=== PATIENT | female | born 1945 | race Caucasian/White ===

== ENCOUNTER 2021-08-19 11:52 | Emergency (ER) | payer MEDICARE, SELFPAY ==
[2021-08-19 11:54] VITALS: BP 171/104; PULSE 85; RESP 22; TEMP 37.2; BMI 27.5
--- NOTE | 2021-08-19 12:10 | EKG12_ITS ---
Test Reason : CP Blood Pressure : / mmHG Vent. Rate : 082 BPM Atrial Rate : 082 BPM P-R Int : 172 ms QRS Dur : 100 ms QT Int : 376 ms P-R-T Axes : 003 -34 028 degrees QTc Int : 439 ms Sinus rhythm with Premature atrial complexes Left axis deviation Abnormal ECG Confirmed by FIDEL TORRES, JOSE ([id number]), continuity editor ABIMAEL SHELBY ([id number]) on 08/22/2021 11:26:54 AM Referred By: BERRY Confirmed By:JOSE PARRA MD
--- NOTE | 2021-08-19 12:10 | RAD_ITS ---
STUDY: X-RAY CHEST REASON FOR EXAM: Female, 76 years old. Right-sided chest pain. TECHNIQUE: Single AP portable view of the chest. COMPARISON: None. FINDINGS: EKG electrodes are seen. Large soft tissue density seen overlying the medial aspect of the left lung. This may represent either a markedly dilated descending thoracic aorta versus possible left mediastinal/hilar mass. Correlation with a CT scan is recommended. Mild increased markings at the left lung base suggestive of atelectasis and/or infiltrate. Elevation of the left hemidiaphragm. Normal visualized thoracic spine. Normal visualized ribs, clavicles, and shoulders. There is no demonstrated abnormality of the visualized soft tissue structures of the upper abdomen. RAD/Chest PA and Lateral IMPRESSION: Large soft tissue density overlying the medial aspect of the left lung suggestive of either markedly dilated aorta versus possible hilar/mediastinal mass. Findings suggestive of atelectasis and/or early infiltrate at the left lung base. Elevation of the left hemidiaphragm. Correlation with a CT scan of the thorax is recommended. Electronically Signed: Darius Servin MD at 12:58 EDT ,
--- NOTE | 2021-08-19 12:10 | ED.VIS.CHEST ---
HPI <ALEXANDRE Nunes - Last Filed: 08/19/21 13:52> History of Present Illness Chief Complaint: Chest Pain Narrative Narrative: 76-year-old female with PMH of hypertension, hyperlipidemia presents with chest pain that started last night around 8 PM while she was sitting in a recliner. This started 2 hours after having beef stew for dinner. Pain was midsternal pressure but also in her right ribs/side. It waxed and waned with no real pattern and this morning she mainly has pain in her right side. Pain is 4/10. It is not exertional or pleuritic. She has no associated shortness of breath. She has been nauseous with dry heaving but no vomiting and no diaphoresis. She denies cardiopulmonary history and has never had a stress test. No history of DVT/PE. No leg pain or swelling, recent surgery or travel, cough or hemoptysis. Patient was found to be hypertensive here and states she took her atenolol 50 mg and lisinopril 10 mg around 8 AM this morning. Prior Similar Symptoms: No PFSH <ALEXANDRE Nunes - Last Filed: 08/19/21 13:52> PFSH Medical History (Updated 08/19/21 @ 14:[address] Lucas Costello MD) High cholesterol Hypertension Home Medications atenolol 50 mg PO DAILY 08/19/21 [History Last Taken Unknown] atorvastatin 10 mg PO DAILY 08/19/21 [History Last Taken Unknown] lisinopril 10 mg PO DAILY 08/19/21 [History Last Taken Unknown] Allergy/AdvReac Type Severity Reaction Status Date / Time Penicillins [PCN] Allergy PT UNSURE Verified 08/19/21 12:22 OF REACTION Surgical History (Updated 08/19/21 @ 12:09 by Kulwant Calles) Hx of appendectomy Hx of tonsillectomy Social History Smoking Status: Former smoker ROS <ALEXANDRE Nunes - Last Filed: 08/19/21 13:52> ROS ED ROS Narrative Constitutional: Negative for fever, chills, malaise. Eyes: Negative for visual change. ENT: Negative for sore throat, ear pain, rhinorrhea. CVS: Positive for chest pain. Negative for palpitations, syncope. Respiratory: Negative for shortness of breath, cough, orthopnea. GI: Positive for nausea. Negative for abdominal pain, vomiting, diarrhea, constipation, melena, hematochezia. : Negative for dysuria, hematuria or frequency. Neuro: Negative for headache, motor/sensory dysfunction. Skin: Negative for rash, abscess, or wound. Musc: Negative for joint pain, swelling, trauma. Heme: Negative for easy bruising, bleeding, lymphadenopathy. EXAM <ALEXANDRE Nunes - Last Filed: 08/19/21 13:52> Physical Exam Narrative Exam Narrative: CONST: Patient sitting in no acute distress. EYES: Normal inspection. ENT: Normal inspection, moist mucous membranes. NECK: Normal inspection. RESP: No respiratory distress, CTAB. CVS: Regular rate and rhythm, no murmur, no gallop. Occasional PVC. ABD: Soft and nontender, no guarding or rebound, nondistended, no hepatosplenomegaly. Back: Normal inspection. SKIN: Color normal, no rash, warm, dry, intact. EXTREMITIES: Normal appearance, no pedal edema. NEURO: Oriented x4. PSYCH: Normal affect. Const Vital Signs: 08/19/21 11:54 08/19/21 12:01 08/19/21 13:55 Temperature 98.9 F Temperature Source Oral Pulse Rate 85 94 Respiratory Rate 22 H 18 Respiratory Effort Normal Blood Pressure 171/104 H 167/93 H Blood Pressure Mean 126 117 Blood Pressure Source Pulse Ox 97 Oxygen Delivery Method Room Air Room Air 08/19/21 14:24 08/19/21 14:27 Temperature Temperature Source Pulse Rate 103 H 94 Respiratory Rate 18 16 Respiratory Effort Blood Pressure 179/72 H 169/89 H Blood Pressure Mean 107 115 Blood Pressure Source Monitor Pulse Ox 94 95 Oxygen Delivery Method Room Air <Dr. Lucas Costello MD - Last Filed: 08/19/21 23:00> Physical Exam Const Vital Signs: 08/19/21 11:54 08/19/21 12:01 08/19/21 13:55 Temperature 98.9 F Temperature Source Oral Pulse Rate 85 94 Respiratory Rate 22 H 18 Respiratory Effort Normal Blood Pressure 171/104 H 167/93 H Blood Pressure Mean 126 117 Blood Pressure Source Pulse Ox 97 Oxygen Delivery Method Room Air Room Air 08/19/21 14:24 08/19/21 14:27 Temperature Temperature Source Pulse Rate 103 H 94 Respiratory Rate 18 16 Respiratory Effort Blood Pressure 179/72 H 169/89 H Blood Pressure Mean 107 115 Blood Pressure Source Monitor Pulse Ox 94 95 Oxygen Delivery Method Room Air <ALEXANDRE Nunes - Last Filed: 08/19/21 13:52> Heart Score History: Slightly/Non-Suspicious ECG: Normal Age: >/= 65 years Risk Factors: >/= 3 Risk Factors or History of CAD Troponin: </= Normal Limit Score: 4 MDM <ALEXANDRE Nunes - Last Filed: 08/19/21 13:52> MDM MDM Narrative Medical decision making narrative: Patient presents with chest pain that started at 8 PM last night. She appears well nontoxic. BP 171/104, otherwise normal. Medical exam is unremarkable with normal heart and lung sounds. Soft, nontender abdomen. Cardiac work-up is negative with nonischemic EKG and troponin of 6. She does have a leukocytosis of 13 but the rest of her lab work is unremarkable with normal CMP and lipase. CXR showed a widening of the mediastinum/mass so a CT of the chest abdomen pelvis was obtained. 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 She was treated with labetalol and morphine and has remained stable. Attending discussed the case with [facility] and she will be life flighted as soon as possible. Diagnoses 1. Chest pain 2. Hypertension 3. Aortic dissection ED attending interpretation of 2 view chest shows large density overlying the heart/left lung possible dilated aorta versus hiatal hernia. Lab Data Labs: Laboratory Results - last 24 hr 08/19/21 08/19/21 08/19/21 11:55 11:55 11:55 WBC 13.8 H RBC 3.93 L Hgb 11.9 L Hct 34.8 L MCV 88.5 MCH 30.3 MCHC 34.2 RDW Std Deviation 39.9 RDW Coeff of Rock 12.3 Plt Count 228 MPV 9.6 Immature Gran % (Auto) 1.200 H Neut % (Auto) 90.0 H Lymph % (Auto) 3.9 L Wilcox % (Auto) 4.7 Eos % (Auto) 0.0 Baso % (Auto) 0.2 Absolute Neuts (auto) 12.4 H Absolute Lymphs (auto) 0.54 L Nucleated RBC % 0 Sodium 136 Potassium 3.6 Chloride 103 Carbon Dioxide 26.0 Anion Gap 7 BUN 18 Creatinine 0.92 Estim Creat Clear Calc 41.14 Est GFR (MDRD) Af Amer 77 Est GFR (MDRD) Non-Af 63 BUN/Creatinine Ratio 19.6 Glucose 141 H Calcium 9.0 Total Bilirubin 0.50 AST 15 ALT 22 Alkaline Phosphatase 65 Troponin I High Sens 6 Total Protein 7.6 Albumin 3.8 Globulin 3.8 Albumin/Globulin Ratio 1.0 Lipase 123 Radiography Diagnostic Testing: Clinical Impression(s) from Imaging Studies Chest X-Ray 08/19/21 12:10 IMPRESSION: Large soft tissue density overlying the medial aspect of the left lung suggestive of either markedly dilated aorta versus possible hilar/mediastinal mass. Findings suggestive of atelectasis and/or early infiltrate at the left lung base. Elevation of the left hemidiaphragm. Correlation with a CT scan of the thorax is recommended. Electronically Signed: Darius Servin MD at 12:58 EDT , Chest/Abdomen/Pelvis CT 08/19/21 13:08 IMPRESSION: There is evidence of a type B aortic dissection originating at the level of the proximal descending thoracic aorta down to the diaphragmatic hiatus with evidence of periaortic hematoma. Small left pleural effusion with left basilar atelectasis. N.B. : The above Results were Read Back by Darius Servin MD to PATRICIA BROWN and understanding confirmed on 08/19/2021 13:50:38 (ET). Electronically Signed: Darius Servin MD at 13:51 EDT , ADDENDUM: 08/19/21 1358 IMPRESSION: There is evidence of a type B aortic dissection originating at the level of the proximal descending thoracic aorta down to the diaphragmatic hiatus with evidence of periaortic hematoma. Small left pleural effusion with left basilar atelectasis. N.B. : The above Results were Read Back by Darius Servin MD to PATRICIA BROWN and understanding confirmed on 08/19/2021 13:50:38 (ET). Electronically Signed: Darius Servin MD at 13:51 EDT , EKG Initial EKG: Attestation: I personally reviewed and interpreted this EKG as follows: Interpretation: Sinus Rhythm (Sinus rhythm with PACs, left axis deviation, no acute ST-T wave changes, 82 bpm) <Dr. Lucas Costello MD - Last Filed: 08/19/21 23:00> [facility] MDM Narrative Medical decision making narrative: I saw the patient after some of her blood work were done. When I went to see her she states the pain did increase. She states she did have some pain in the lower chest but most was in the upper abdomen and more on the right side than the left clearly. She did not have pain in the back., She looked uncomfortable. She states this started about 8 PM last night. She thought it was the food she ate even though her did not have symptoms. She states it has been cramping and waxing and waning ever since but has never gone away. She is not short of breath. She has not been syncopal or lightheaded. She does have a history of high blood pressure. She evidently is taking her medications. Yet her blood pressure is a bit up here. With her symptoms, worsening, chest x-ray findings of abnormal aortic arch and possible hiatal hernia, we did do CT with contrast of both chest and abdomen. The x-ray tech called me when this was done and stated there appeared to be abnormality. I looked at these images and this looks like a Jovan type B dissection. When this was noted we placed an order for labetalol. We do not have an order set for Brevibloc in the computer. We made immediately calls to [facility]. I have discussed the case twice through the call center. Blood pressure responded a bit but then is getting back up. We were giving labetalol at 40. We done this through a verbal order. I now have the written order in. However, we only have another 20 mg of labetalol in the department. So we are giving that. We have also called the pharmacy to have them mix up a Brevibloc drip as we do not have a preset order for that. Helicopter should be here in a matter of minutes. I explained the process disease flight reason for transfer with patient and . I also explained that this is a highly dangerous disease. She needs to be in an area that has the capability to manage this including the possibility of surgery even though these can sometimes be managed medically. Patient does not have signs of distal ischemia. Due to repeat visits with the patient and her , discussing with consultants, pharmacy, other staff, critical care time of 50 minutes was needed. Lab Data Attestation: I reviewed the patient's lab results. Labs: Laboratory Results - last 24 hr 08/19/21 08/19/21 08/19/21 11:55 11:55 11:55 WBC 13.8 H RBC 3.93 L Hgb 11.9 L Hct 34.8 L MCV 88.5 MCH 30.3 MCHC 34.2 RDW Std Deviation 39.9 RDW Coeff of Rock 12.3 Plt Count 228 MPV 9.6 Immature Gran % (Auto) 1.200 H Neut % (Auto) 90.0 H Lymph % (Auto) 3.9 L Wilcox % (Auto) 4.7 Eos % (Auto) 0.0 Baso % (Auto) 0.2 Absolute Neuts (auto) 12.4 H Absolute Lymphs (auto) 0.54 L Nucleated RBC % 0 Sodium 136 Potassium 3.6 Chloride 103 Carbon Dioxide 26.0 Anion Gap 7 BUN 18 Creatinine 0.92 Estim Creat Clear Calc 41.14 Est GFR (MDRD) Af Amer 77 Est GFR (MDRD) Non-Af 63 BUN/Creatinine Ratio 19.6 Glucose 141 H Calcium 9.0 Total Bilirubin 0.50 AST 15 ALT 22 Alkaline Phosphatase 65 Troponin I High Sens 6 Total Protein 7.6 Albumin 3.8 Globulin 3.8 Albumin/Globulin Ratio 1.0 Lipase 123 Radiography Diagnostic Testing: Clinical Impression(s) from Imaging Studies Chest X-Ray 08/19/21 12:10 IMPRESSION: Large soft tissue density overlying the medial aspect of the left lung suggestive of either markedly dilated aorta versus possible hilar/mediastinal mass. Findings suggestive of atelectasis and/or early infiltrate at the left lung base. Elevation of the left hemidiaphragm. Correlation with a CT scan of the thorax is recommended. Electronically Signed: Darius Servin MD at 12:58 EDT , Chest/Abdomen/Pelvis CT 08/19/21 13:08 IMPRESSION: There is evidence of a type B aortic dissection originating at the level of the proximal descending thoracic aorta down to the diaphragmatic hiatus with evidence of periaortic hematoma. Small left pleural effusion with left basilar atelectasis. N.B. : The above Results were Read Back by Darius Servin MD to PATRICIA BROWN and understanding confirmed on 08/19/2021 13:50:38 (ET). Electronically Signed: Darius Servin MD at 13:51 EDT , ADDENDUM: 08/19/21 1358 IMPRESSION: There is evidence of a type B aortic dissection originating at the level of the proximal descending thoracic aorta down to the diaphragmatic hiatus with evidence of periaortic hematoma. Small left pleural effusion with left basilar atelectasis. N.B. : The above Results were Read Back by Darius Servin MD to PATRICIA BROWN and understanding confirmed on 08/19/2021 13:50:38 (ET). Electronically Signed: Darius Servin MD at 13:51 EDT , <Dr. Lucas Costello MD - Last Filed: 08/19/21 23:00> Critical Care Time Critical care time (excluding procedures): 30-74 minutes, Discussing w/Patient &/or Family/Employment Trainer, Discussing w/Consultants, Arranging Admission or Transfer, Performing Direct Patient Care at Bedside and - (50 minutes. See MDM) Discharge Plan Triage Chief Complaint: Chest Pain ED Provider: Patricia Brwon Dx/Rx/DC Orders Clinical Impression: Aortic dissection, Hypertensive emergency Prescriptions: No Action atorvastatin 10 mg tablet 10 mg PO DAILY RF: 0 lisinopril 10 mg tablet 10 mg PO DAILY RF: 0 atenolol 50 mg tablet 50 mg PO DAILY RF: 0 Primary Care Provider: Amadou Sanderson Referrals: Amadou Sanderson MD [Primary Care Provider] - Disposition Disposition: Acute Care Hospital Discharge Location: [facility] Discharge Date/Time: 08/19/21 14:37
[2021-08-19 12:20] LABS: Absolute Lymphocyte Count 0.54 X10^3/uL (0.83-4.51); Absolute Neutrophil Count 12.4 X10^3/uL (2.0-7.7); Basophil# 0.03 X10^3/uL; Basophil% 0.2 % (0-1); Hematocrit 34.8 % (37-47); Hemoglobin 11.9 g/dL (12.0-15.0); Lymphocyte # 0.54 X10^3/ul (0.83-4.51); Lymphocyte % 3.9 % (19-41); Mean Corp Hgb Conc 34.2 g/dL (32-36); Mean Corpuscular Hgb 30.3 pg (27.0-32.0); Mean Corpuscular Volume 88.5 fL (81-99); Mean Platelet Vol. 9.6 fl (6.2-12.0); Monocyte# 0.65 X10^3/uL; Monocyte% 4.7 % (0-10); NRBC Flagged by Analyzer 0 % (0-5); POSITIVE DIFFERENTIAL YES; Platelet Count 228 K/mm3 (150-450); RBC Distribution Width CV 12.3 % (11.6-14.6); RBC Distribution Width SD 39.9 fl (35.1-43.9); Red Blood Count 3.93 M/mm3 (4.2-5.4); White Blood Count 13.8 K/mm3 (4.4-11.0)
[2021-08-19] MEDS: Ondansetron 4 MG/2 ML Vial IV (12:22)
[2021-08-19 12:31] LABS: Differential Indicated SCAN CRITERIA MET
[2021-08-19 12:36] LABS: AST(SGOT) 15 U/L (15-37); Alanine Aminotransfer ALT/SGPT 22 U/L (13-56); Albumin, Serum 3.8 g/dL (3.2-5.0); Alkaline Phosphatase 65 U/L (45-117); Anion Gap 7 (5-15); BUN 18 mg/dL (7-18); BUN/Creat Ratio 19.6 RATIO (10-20); Chloride 103 mmol/L (98-107); Creatinine, Serum 0.92 mg/dL (0.55-1.02); EST Glomerular Filtration Rate 63 mL/min (>60); Est Glom Filt Rate - Afr Amer 77 mL/min (>60); Estimated Creatinine Clearance 41.14 ml/min; Globulin 3.8 g/dL (2.2-4.2); Glucose 141 mg/dL (74-106); Potassium 3.6 mmol/L (3.5-5.1); Protein, Total 7.6 g/dL (6.4-8.2); Sodium Level 136 mmol/L (136-145); Troponin-I HS 6 pg/mL (3.0-54.0)
--- NOTE | 2021-08-19 13:08 | CT_ITS ---
STUDY: CT CHEST, ABDOMEN T PELVIS WITH CONTRAST REASON FOR EXAM: Female, 76 years old. Chest pain, upper abdominal pain RADIATION DOSAGE (If Supplied By Facility): CTDIvol = ( 11.22 ) mGy, DLP = ( 808.60 ) mGycm TECHNIQUE: Transaxial imaging was performed following intravenous administration of IV 100mL Isovue-300. Individualized dose optimization techniques were used for this CT. COMPARISON: Comparison is made with prior chest radiograph done earlier today. FINDINGS: CHEST EKG electrodes are seen. Small left pleural effusion with left basilar atelectasis. Mild increased markings at the right lung base. There are calcifications of the coronary arteries. Normal mediastinum. Normal hilar regions. Normal unenhanced pulmonary arteries. There is dilatation of the aortic root measuring 5.2 times in transverse dimension. There is evidence of a type aortic dissection dissection of the descending thoracic aorta originating just distal to the left subclavian artery. This extends down to the diaphragmatic hiatus. There is evidence of periaortic soft tissue density in keeping with the hematoma. There are degenerative changes of the thoracic spine. ABDOMEN Normal liver. Normal gallbladder and extrahepatic biliary system. Normal spleen. Normal pancreas. Normal bilateral adrenal glands. There is a 3 cm x 1.97 m cyst in the upper medial pole of the right kidney. Normal left kidney. Normal visualized stomach. Normal small intestine. There are multiple colonic diverticula consistent with diverticulosis. The appendix is visualized and appears normal. There is diffuse atherosclerotic calcification of the abdominal aorta, without a demonstrated aneurysm. Mural thrombus is seen in the posterior aspect of the abdominal aorta at the level of the diaphragmatic hiatus. Normal inferior vena cava. Normal retroperitoneum. Normal abdominal wall. There are diffuse degenerative changes of the visualized lumbar spine. PELVIS Normal urinary bladder. There is no pelvic fluid. There is no pelvic lymphadenopathy or mass lesion. There is diffuse atherosclerotic calcification of the pelvic arteries. CT/CT Chest, Abd, Pel w/Contrast IMPRESSION: There is evidence of a type B aortic dissection originating at the level of the proximal descending thoracic aorta down to the diaphragmatic hiatus with evidence of periaortic hematoma. Small left pleural effusion with left basilar atelectasis. N.B. : The above Results were Read Back by Darius Servin MD to KWAME BROWN and understanding confirmed on 08/19/2021 13:50:38 (ET). Electronically Signed: Darius Servin MD at 13:51 EDT ,
[2021-08-19] MEDS: Morphine 2 MG/ML Syringe IV (13:16)
[2021-08-19 13:27] LABS: Lipase 123 U/L (73-393)
[2021-08-19] MEDS: Labetalol (Prefilled) 20 MG/4 ML IV (13:41)
--- NOTE | 2021-08-19 13:47 | NURSING ---
1340 CALLED [facility] FOR TRANSFER.
[2021-08-19 13:55] VITALS: BP 167/93; PULSE 94; RESP 18; O2SAT 97
[2021-08-19] MEDS: Labetalol (Prefilled) 20 MG/4 ML 40 MG IV (14:20)
[2021-08-19] MEDS: ESMOLOL 100 MG/10 ML 17 MG IV (14:21)
[2021-08-19 14:24] VITALS: BP 179/72; PULSE 103; RESP 18; O2SAT 94
--- NOTE | 2021-08-19 14:26 | ED.RN ---
[facility] present ans assuming care. reports given. assisted with needs/equipment.
[2021-08-19 14:27] VITALS: BP 169/89; PULSE 94; RESP 16; O2SAT 95
--- NOTE | 2021-08-19 14:29 | ED.RN ---
pt tp continue esmolol in flight
--- NOTE | 2021-08-19 14:33 | ED.RN ---
report called to [facility] claudette boland/neeta boland.
== END 2021-08-19 14:37 | disposition short-term general hospital (02) ==
PROVIDERS: Emergency Medicine; Emergency Provider Physician Assistant; PCP Family Medicine; Visit Provider Physician Assistant
DX: I16.1 Hypertensive emergency (principal); I71.00 Dissection of unspecified site of aorta; R11.0 Nausea; E78.00 Pure hypercholesterolemia, unspecified; Z87.891 Personal history of nicotine dependence; E78.5 Hyperlipidemia, unspecified; I10 Essential (primary) hypertension
CPT/HCPCS: 71046; 71260; 74177; 80053; 83690; 84484; 85025; 93005; 99285; Q9967; A4216; J2405

== ENCOUNTER → 2022-05-11 | Outpatient (CLI) | payer MEDICARE, SELFPAY ==
[2022-05-11 15:26] LABS: Anion Gap 8 (5-15); BUN 21 mg/dL (7-18); BUN/Creat Ratio 22.3 RATIO (10-20); Calcium,Total 9.2 mg/dL (8.5-10.1); Chloride 106 mmol/L (98-107); Creatinine, Serum 0.94 mg/dL (0.55-1.02); EST Glomerular Filtration Rate 61 mL/min (>60); Est Glom Filt Rate - Afr Amer 74 mL/min (>60); Glucose 137 mg/dL (74-106); Sodium Level 140 mmol/L (136-145)
== END | disposition home or self-care (01) ==
LOC: LAB 13:36
PROVIDERS: Nurse Practitioner Family; PCP Family Medicine; Referring Provider Internal Medicine Cardiovascular Disease; Visit Provider Internal Medicine Cardiovascular Disease
DX: I10 Essential (primary) hypertension (principal); Z98.890 Other specified postprocedural states; Z86.79 Personal history of other diseases of the circulatory system
CPT/HCPCS: 36415; 80048

== ENCOUNTER → 2023-06-12 | Outpatient (CLI) | payer MEDICARE, SELFPAY ==
[2023-06-12 10:09] LABS: Anion Gap 4 (5-15); BUN 22 mg/dL (7-18); BUN/Creat Ratio 23.7 RATIO (10-20); Calcium,Total 9.5 mg/dL (8.5-10.1); Chloride 111 mmol/L (98-107); Creatinine, Serum 0.93 mg/dL (0.55-1.02); EST Glomerular Filtration Rate 62 mL/min (>60); Est Glom Filt Rate - Afr Amer 75 mL/min (>60); Glucose 124 mg/dL (74-106); Potassium 4.2 mmol/L (3.5-5.1); Sodium Level 141 mmol/L (136-145)
== END | disposition home or self-care (01) ==
PROVIDERS: PCP Family Medicine; Referring Provider Nurse Practitioner Gerontology; Visit Provider Nurse Practitioner Gerontology
DX: I10 Essential (primary) hypertension (principal)
CPT/HCPCS: 36415; 80048

== ENCOUNTER → 2023-12-07 | Outpatient (CLI) | payer MEDICARE, SELFPAY | END | disposition home or self-care (01) | LOC: PSN 08:11 | PROVIDERS: Referring Provider Nurse Practitioner Gerontology; Visit Provider Nurse Practitioner Gerontology | DX: I49.49 Other premature depolarization (principal) | CPT/HCPCS: 93225; 93226 ==

== ENCOUNTER 2024-05-12 13:59 | Emergency (ER) | payer MEDICARE, SELFPAY ==
[2024-05-12 14:00] VITALS: BP 193/98; PULSE 101; RESP 18; TEMP 36.7; O2SAT 96; BMI 25.4
--- NOTE | 2024-05-12 14:35 | EX.ED.DYSGE1 ---
HPI History of Present Illness Chief Complaint: Hypertension 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) Thoracic aortic aneurysm (TAA) Mixed hyperlipidemia Lump or mass in breast Essential (primary) hypertension Home Medications ?Medication ?Instructions ?Recorded ?Last Taken ?Type acetaminophen 500 mg capsule 500 mg PO Q6H PRN fever or pain 01/20/22 Unknown History aspirin 81 mg chewable tablet 81 mg PO DAILY 01/20/22 05/12/24 History multivitamin 1 tab PO DAILY 04/25/22 05/12/24 History cholecalciferol (vitamin D3) 125 125 mcg PO DAILY 05/11/22 05/12/24 History mcg (5,000 unit) tablet lisinopril 40 mg tablet 40 mg PO BID This is a dose 07/10/23 05/12/24 Rx increase #180 tabs amlodipine 5 mg tablet 5 mg PO DAILY #90 tabs 12/03/23 05/12/24 Rx metoprolol succinate 100 mg 100 mg PO QDAY #30 tabs 01/01/24 05/12/24 Rx tablet,extended release 24 hr atorvastatin 20 mg tablet 20 mg PO QHS #90 tabs 03/31/24 05/11/24 Rx Allergy/AdvReac Type Severity Reaction Status Date / Time Penicillins (PCN) Allergy PT UNSURE Verified 05/12/24 14:03 OF REACTION Family History Mother Cancer Lung Surgical History Hx of repair of dissecting thoracic aortic aneurysm, [place] type B (09/23/21) History of left heart catheterization (08/26/21) 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) Hx of tonsillectomy Hx of appendectomy Social History (Updated 12/03/23 @ 09:40 by Jaquelin Villa NP, CLINICAL PROFESSOR-C) Smoking Status: Never smoker alcohol intake: current substance use type: does not use EXAM Physical Exam Const Vital Signs: 05/12/24 14:00 05/12/24 14:03 05/12/24 16:00 Temperature 98.1 F Temperature Source Oral Pulse Rate 101 H 82 Respiratory Rate 18 17 Respiratory Effort Normal Non-Labored Respiratory Pattern Normal Blood Pressure 193/98 H 164/80 H Blood Pressure Mean 129 108 Pulse Ox 96 94 Oxygen Delivery Method Room Air Room Air [facility] [place] Narrative Medical decision making narrative: HISTORY OF PRESENT ILLNESS: 79-year-old female presents with elevated blood pressure. States has been compliant with her home blood pressure medicines. She denies headache, chest pain, shortness of breath, leg swelling. She states she notes her blood pressure was 200 something over 100 something. REVIEW OF SYSTEMS: Pertinent positives: None Pertinent negatives: Headache, visual changes, PHYSICAL EXAM: Nursing triage notes reviewed, Vital signs reviewed Constitutional: please see [facility] HENT: MMM Eyes: Pupils equal round and reactive to light, Extraocular muscles intact Neck: No stridor, no JVD, full neck ROM Lungs: Clear to auscultation, No wheezing or rales. No increased work of breathing, no conversational dyspnea, no accessory muscle use, no nasal flaring. No respiratory distress noted Heart: Regular rate and rhythm, No murmurs, No rubs and No gallops, 2+ distal pulses (radial, femoral, posterior tibial) in all extremities Abdomen: Soft, there is no tenderness, rigidity, rebound or guarding, no obvious peritoneal signs, no palpable pulsatile abdominal masses, no auscultated abdominal bruit : No CVAT Extremities: No edema Neuro: Minor Skin: No rash or lesions noted MEDICAL DECISION MAKING: Chief Complaint: Hypertension External records reviewed: Reviewed medications: Patient's current 5 mg of amlodipine, 40 mg of lisinopril and 100 mg of extended release metoprolol Factors affecting care: hypertension, thoracic arctic aneurysm Social determinants of health: none History obtained from others: Significant other Consults: none [facility] Narrative: Patient was initially hypertensive with a blood pressure 193/90, mildly tachycardic rate of 101, afebrile, nontoxic-appearing. Exam without focal deficits. No focal cardiopulmonary maladies or stigmata of CHF noted. I considered the following differential diagnosis: Endorgan damage from elevated blood pressure including ICH, CHF, ACS, kidney damage I obtained a broad lab and imaging workup to further elucidate etiology of the patient's complaints. ALL IMAGES (IF OBTAINED) HAVE BEEN PERSONALLY REVIEWED AND INTERPRETED BY MYSELF. EKG with normal sinus rhythm rate of 82, left axis deviation, normal intervals, QTc 441, no STEMI or arrhythmia CBC with no leukocytosis, no anemia or thrombocytopenia noted High-sensitivity troponin is negative, no evidence of myocardial ischemia BMP without evidence of significant electrolyte abnormalities, no anion gap, no acute kidney injury. I have personally reviewed the patient's chest x-ray. Chest x-ray is unremarkable for pulmonary edema, pneumothorax, pneumonia or focal cardiopulmonary abnormality. CT scan of the head shows no evidence of obvious intracranial hemorrhage Upon reevaluation patient's blood pressure improved 164/80, heart rate improved to 82. She continued to be asymptomatic. Her repeat neurologic exam remained benign and intact. No signs of endorgan damage from elevated blood pressure. Recommended increasing her Norvasc from 5 to 10 mg daily to follow with her primary care physician for further antihypertensive titration as an outpatient. The patient and/or family, caregivers express understanding. The patient and/or family, caregivers agrees with the plan. Shared decision making: I will have a discussion with the patient and or visitors regarding risk/benefits of further testing or admission. They will be made aware of of the risk/benefits inherent in this decision they will be given the opportunity to voice understanding. Total critical care time today provided was at least 0 minutes. This excludes separately billable procedures. Critical care time (if documented) is secondary to the patient having high probability of clinically significant/life threatening deterioration in the patient's condition which required my urgent intervention. Impression: 1. Elevated blood pressure 2. History of hypertension Dispo: Discharge home This note was generated with [employer] dictation software. It may contain incorrect words, spelling, and punctuation that were not noted in review of the chart prior to signing. 3 Lab Data Labs: Laboratory Results - last 24 hr 05/12/24 14:38 WBC 8.6 RBC 4.29 Hgb 12.7 Hct 38.1 MCV 88.8 MCH 29.6 MCHC 33.3 RDW Std Deviation 43.5 RDW Coeff of Rock 13.4 Plt Count 171 MPV 9.3 Immature Gran % (Auto) 0.800 Neut % (Auto) 79.1 H Lymph % (Auto) 12.9 L [place] % (Auto) 5.2 Eos % (Auto) 1.4 Baso % (Auto) 0.6 Absolute Neuts (auto) 6.8 Absolute Lymphs (auto) 1.11 Nucleated RBC % 0 Sodium 141 Potassium 3.6 Chloride 106 Carbon Dioxide 27.0 Anion Gap 8 BUN 24 H Creatinine 0.82 Estim Creat Clear Calc 48.57 Est GFR (MDRD) Af Amer 87 Est GFR (MDRD) Non-Af 72 BUN/Creatinine Ratio 29.4 H Glucose 127 H Calcium 9.4 Troponin I High Sens 8 Radiography Diagnostic Testing: Clinical Impression(s) from Imaging Studies Brain CT 05/12/24 14:56 IMPRESSION: Volume loss with chronic white matter changes. No acute intracranial findings. Electronically Signed: Milad Landaverde MD at 15:51 EST , Chest X-Ray 05/12/24 15:07 IMPRESSION: Aneurysmal dilatation of the descending thoracic aorta. Endoluminal stent grafting is seen in the ascending thoracic aorta and descending thoracic aorta. Electronically Signed: Darius Servin MD at 15:18 EST , Discharge Plan Triage Chief Complaint: Hypertension ED Provider: Edmundo Garza Dx/Rx/DC Orders Prescriptions: No Action aspirin 81 mg tablet,chewable 81 mg PO DAILY acetaminophen 500 mg capsule 500 mg PO Q6H PRN (Reason: fever or pain) cholecalciferol (vitamin D3) 125 mcg (5,000 unit) tablet 125 mcg PO DAILY amlodipine 5 mg tablet 5 mg PO DAILY Qty: 90 3RF multivitamin Tablet 1 tab PO DAILY lisinopril 40 mg tablet 40 mg PO BID Qty: 180 3RF metoprolol succinate 100 mg tablet extended release 24 hr 100 mg PO QDAY Qty: 30 11RF atorvastatin 20 mg tablet 20 mg PO QHS Qty: 90 3RF Primary Care Provider: Mackenzie Simental Referrals: [facility] [address] Doctor,Out of [Non-Staff] - Print Language: Azeri
--- NOTE | 2024-05-12 14:56 | CT_ITS ---
INDICATION: elevated BP EXAMINATION: CT BRAIN - CT Head or Brain W/O Contrast Injection TECHNIQUE: Multiple axial images were obtained of the head without intravenous contrast. A radiation dose optimization technique was used for this scan. IV Contrast dosage and agent: None. COMPARISON: None. FINDINGS: BRAIN PARENCHYMA: No intra- or extra-axial hemorrhage. No evidence of acute infarct. No intracranial mass or mass effect. There is preservation of the champagne/white matter interface. Posterior fossa structures are unremarkable. Volume loss with low attenuation of the periventricular white matter typical of chronic small vessel disease. CSF SPACES: Appropriate for age. No hydrocephalus. Basal cisterns are patent. CALVARIUM, SKULL BASE, PARANASAL SINUSES AND MASTOID AIR CELLS: Clear. No discrete lytic or blastic abnormalities. CT/Brain/Head without Contrast IMPRESSION: Volume loss with chronic white matter changes. No acute intracranial findings. Electronically Signed: Milad Landaverde MD at 15:51 EST ,
--- NOTE | 2024-05-12 14:57 | EKG12_ITS ---
Test Reason : HIGH BP Blood Pressure : */* mmHG Vent. Rate : 82 BPM Atrial Rate : 82 BPM P-R Int : 176 ms QRS Dur : 96 ms QT Int : 378 ms P-R-T Axes : 12 -22 47 degrees QTcB Int : 441 ms Normal sinus rhythm Normal ECG Confirmed by CARMINA TORRES, SPENCER ([id number]), film editor ABIMAEL SHELBY ([id number]) on 05/20/2024 6:00:54 AM Referred By: Confirmed By: SPENCER GREWAL MD
[2024-05-12 15:06] LABS: Absolute Lymphocyte Count 1.11 X10^3/uL (0.83-4.51); Absolute Neutrophil Count 6.8 X10^3/uL (2.0-7.7); Basophil# 0.05 X10^3/uL; Basophil% 0.6 % (0-1); Eosinophil# 0.12 X10^3/uL; Eosinophils% 1.4 % (0-5); Hematocrit 38.1 % (37-47); Hemoglobin 12.7 g/dL (12.0-15.0); Lymphocyte # 1.11 X10^3/ul (0.83-4.51); Lymphocyte % 12.9 % (19-41); Mean Corp Hgb Conc 33.3 g/dL (32-36); Mean Corpuscular Hgb 29.6 pg (27.0-32.0); Mean Corpuscular Volume 88.8 fL (81-99); Mean Platelet Vol. 9.3 fl (6.2-12.0); Monocyte# 0.45 X10^3/uL; Monocyte% 5.2 % (0-10); NRBC Flagged by Analyzer 0 % (0-5); Neutrophil % 79.1 % (47-70); Platelet Count 171 K/mm3 (150-450); RBC Distribution Width CV 13.4 % (11.6-14.6); RBC Distribution Width SD 43.5 fl (35.1-43.9); Red Blood Count 4.29 M/mm3 (4.2-5.4); White Blood Count 8.6 K/mm3 (4.4-11.0)
--- NOTE | 2024-05-12 15:07 | RAD_ITS ---
STUDY: X-RAY CHEST REASON FOR EXAM: Female, 79 years old. Elevated BP TECHNIQUE: Single AP portable view of the chest. COMPARISON: Comparison is made with prior study August 19, 2021. FINDINGS: Mild increased linear markings at the left lung base suggestive of linear scarring. There is no demonstrated pleural abnormality. Sternal cerclage wires are present from a prior sternotomy. Normal mediastinum and juice. Normal visualized pulmonary arteries. There is atherosclerotic tortuosity and aneurysmal dilatation of the aortic arch and descending thoracic aorta. Endoluminal stent grafting is seen of the aortic arch and descending thoracic aorta. Normal visualized thoracic spine. Normal visualized ribs, clavicles, and shoulders. There is no demonstrated abnormality of the visualized soft tissue structures of the upper abdomen. RAD/Chest 1 View (Portable) IMPRESSION: Aneurysmal dilatation of the descending thoracic aorta. Endoluminal stent grafting is seen in the ascending thoracic aorta and descending thoracic aorta. Electronically Signed: Darius Servin MD at 15:18 EST ,
[2024-05-12 15:27] LABS: Anion Gap 8 (5-15); BUN 24 mg/dL (7-18); BUN/Creat Ratio 29.4 RATIO (10-20); Calcium,Total 9.4 mg/dL (8.5-10.1); Chloride 106 mmol/L (98-107); Creatinine, Serum 0.82 mg/dL (0.55-1.02); EST Glomerular Filtration Rate 72 mL/min (>60); Est Glom Filt Rate - Afr Amer 87 mL/min (>60); Estimated Creatinine Clearance 48.57 ml/min; Glucose 127 mg/dL (74-106); Potassium 3.6 mmol/L (3.5-5.1); Sodium Level 141 mmol/L (136-145); Troponin-I HS 8 pg/mL (3.0-54.0)
[2024-05-12 16:00] VITALS: BP 164/80; PULSE 82; RESP 17; O2SAT 94
[2024-05-12 17:02] VITALS: BP 148/88; PULSE 80; RESP 12; TEMP 36.6; O2SAT 97
== END 2024-05-12 17:02 | disposition home or self-care (01) ==
PROVIDERS: Emergency Provider Emergency Medicine; PCP Physician Assistant Medical; Visit Provider Emergency Medicine
DX: I10 Essential (primary) hypertension (principal); E78.2 Mixed hyperlipidemia; Z79.82 Long term (current) use of aspirin; Z79.899 Other long term (current) drug therapy; Z90.49 Acquired absence of other specified parts of digestive tract
CPT/HCPCS: 70450; 71045; 80048; 84484; 85025; 93005; 99285; A4216

== ENCOUNTER → 2024-06-03 | Outpatient (CLI) | payer MEDICARE, SELFPAY ==
[2024-06-03 15:05] LABS: AST(SGOT) 23 U/L (15-37); Alanine Aminotransfer ALT/SGPT 26 U/L (13-56); Albumin, Serum 3.9 g/dL (3.2-5.0); Alkaline Phosphatase 82 U/L (45-117); Bilirubin, Direct 0.11 mg/dL (0.00-0.30); Cholesterol 159 mg/dL (200); Globulin 3.8 g/dL (2.2-4.2); High Density Lipoprotein 77 mg/dL; Protein, Total 7.7 g/dL (6.4-8.2); Triglycerides 71 mg/dL; Very Low Density Lipoprotein 14 mg/dL (5-40)
== END | disposition home or self-care (01) ==
LOC: LAB 14:26
PROVIDERS: Referring Provider Internal Medicine Cardiovascular Disease; Visit Provider Internal Medicine Cardiovascular Disease
DX: E78.2 Mixed hyperlipidemia (principal)
CPT/HCPCS: 36415; 80061; 80076

== ENCOUNTER → 2025-03-03 | Outpatient (CLI) | payer MEDICARE, SELFPAY ==
[2025-03-03 10:55] LABS: AST(SGOT) 32 U/L (<=31); Alanine Aminotransfer ALT/SGPT 23 U/L (<=34); Albumin, Serum 4.6 g/dL (3.4-4.8); Alkaline Phosphatase 76 U/L (35-104); Bilirubin, Direct 0.19 mg/dL (0.00-0.30); Cholesterol 136 mg/dL (<=200); Globulin 2.7 g/dL (2.2-4.2); Low Density Lipoprotein Calc. 58 mg/dL; Triglycerides 66 mg/dL; Very Low Density Lipoprotein 13 mg/dL (5-40); cholesterol:hdl ratio screen 2.10
== END | disposition home or self-care (01) ==
PROVIDERS: Referring Provider Nurse Practitioner Gerontology; Visit Provider Nurse Practitioner Gerontology
DX: E78.2 Mixed hyperlipidemia (principal)
CPT/HCPCS: 36415; 80061; 80076